=== PATIENT | male | born 1965 | race Caucasian/White ===

== ENCOUNTER 2018-07-20 11:28 | Emergency (ER) | payer OTHER ==
[2018-07-20] MEDS: KETOROLAC 60 MG INJ IM (12:53)
== END 2018-07-20 13:58 | disposition home or self-care (01) ==
LOC: FTE 11:28
DX: S49.92XA Unspecified injury of left shoulder and upper arm, initial encounter (principal); M75.32 Calcific tendinitis of left shoulder; V49.9XXA Car occupant (driver) (passenger) injured in unspecified traffic accident, initial encounter; Y92.9 Unspecified place or not applicable
CPT/HCPCS: 73030; 96372; 99284-25